=== PATIENT | male | born 1980 | race Caucasian/White ===

== ENCOUNTER 2020-05-14 15:51 | Observation (INO) | payer BC ==
[2020-05-14] MEDS ORDERED: KETOROLAC 15 MG/ML 1 ML VIAL IVP STA (16:15)
[2020-05-14 16:33] LABS: HCT 45.1 % (39.0-53.0); HGB 15.9 gm/dL (13.0-17.5); MCH 30.3 pg (25.0-35.0); MCHC 35.3 g/dL (31.0-37.0); RBC 5.24 m/uL (4.30-5.90); RDW 12.5 % (11.5-15.5); WBC 10.3 k/uL (3.8-10.6)
[2020-05-14 16:34] LABS: Basophils # (A) 0.1 k/uL (0-0.2); Basophils % (A) 1 %; Eosinophils # (A) 0.3 k/uL (0-0.7); Eosinophils % (A) 2 %; Lymphocytes # (A) 3.4 k/uL (1.0-4.8); Lymphocytes % (A) 33 %; Mean Platelet Volume 6.7; Monocytes # (A) 0.5 k/uL (0-1.0); Monocytes % (A) 5 %; Neutrophils % (A) 59 %; Platelet Count 244 k/uL (150-450)
--- NOTE | 2020-05-14 16:45 | ED ---
Chest Pain HPI - General Source: patient, family Mode of arrival: ambulatory Limitations: no limitations <Monica Nino - Last Filed: 05/14/20 17:58> <Jenny Stephenson - Last Filed: 05/18/20 16:18> - General Chief Complaint: Chest Pain Stated Complaint: Chest Pain Time Seen by Provider: 05/14/20 16:07 - History of Present Illness Initial Comments: Patient is a 39-year-old male presenting to the emergency Department with complaints of intermittent chest pain for the last week. Patient states he came back from vacation from [place] which he drove, 10 days go and he has been having left-sided chest discomfort that has been intermittent for the last 10 days. Patient states at times it can be very sharp, hurts to the touch and sometimes hurts when he takes in a deep breath. He denies any trauma or falls. He denies any cough or fever. He denies history of heart disease. He states he is an every day smoker, smokes 1 pack a day. No other drug use. He denies any sick contacts. Denies history of PEs. He states he takes no medications. Currently his chest pain is minimal at 2/10. He has not tried any medications for this. He denies any radiation at this time but states it sometimes does go into his left shoulder. Patient has no further complaints at this time. Upon arrival to the ER his vital signs are stable. (Monica Nino) - Related Data Home Medications Medication Instructions Recorded Confirmed No Known Home Medications 05/14/20 05/14/20 Allergies Allergy/AdvReac Type Severity Reaction Status Date / Time No Known Allergies Allergy Verified 05/14/20 17:26 Review of Systems ROS Other: All systems not noted in ROS Statement are negative. <Monica Nino - Last Filed: 05/14/20 17:58> ROS Other: All systems not noted in ROS Statement are negative. <Jenny Stephenson - Last Filed: 05/18/20 16:18> ROS Statement: Those systems with pertinent positive or pertinent negative responses have been documented in the HPI. EKG Findings - EKG Comments: EKG Findings:: Normal sinus rhythm, normal ECG, no signs of an acute process. Ventricular rate 95, VA interval 196, QT 344. <Monica Nino - Last Filed: 05/14/20 17:58> Past Medical History Past Medical History: No Reported History History of Any Multi-Drug Resistant Organisms: None Reported Additional Past Surgical History / Comment(s): orthopedic surgery. finger surgery. umbilical hernia. Past Psychological History: No Psychological Hx Reported Smoking Status: Current every day smoker Past Alcohol Use History: Occasional Past Drug Use History: None Reported <MicaMonica Robert - Last Filed: 05/14/20 17:58> General Exam Limitations: no limitations <Abiola Ninonifer Robert - Last Filed: 05/14/20 17:58> - General Exam Comments Initial Comments: GENERAL: Patient is well-developed and well-nourished. Patient is nontoxic and in no acute distress. HEAD: Atraumatic, normocephalic. EYES: Pupils equal round and reactive to light, extraocular movements intact, sclera anicteric, conjunctiva are normal. Eyelids were unremarkable. ENT: TMs normal, nares patent, oropharynx clear without exudates. Moist mucous membranes. NECK: Normal range of motion, supple without lymphadenopathy or JVD. LUNGS: Unlabored respirations. Breath sounds clear to auscultation bilaterally and equal. No wheezes rales or rhonchi. HEART: Regular rate and rhythm without murmurs, rubs or gallops. ABDOMEN: Soft, nontender, normoactive bowel sounds. No guarding, no rebound. No masses appreciated. : Deferred MUSCULOSKELETAL: Normal extremities with adequate strength and normal range of motion, no pitting or edema. No clubbing or cyanosis. No pain with palpation of the anterior chest, left shoulder. NEUROLOGICAL: Patient is alert and oriented x 3. Motor and sensory are also intact. Cranial nerves II through XII grossly intact. Symmetrical smile. Normal speech, normal gait. PSYCH: Normal mood, normal affect. SKIN: Warm, Dry, normal turgor, no rashes or lesions noted. (Monica Nino) Course Vital Signs 05/14/20 05/14/20 05/14/20 15:59 16:09 17:11 Temperature 98.6 F 97.6 F Pulse Rate 99 93 Pulse Rate [ 97 Food Vendor ] Pulse Rate [ Pulse Oximetery ] Respiratory 20 16 Rate Blood Pressure 124/75 132/85 Blood Pressure [Right Arm] O2 Sat by Pulse 98 96 Oximetry 05/14/20 05/14/20 18:17 18:34 Temperature 97.6 F 98.1 F Pulse Rate 92 Pulse Rate [ Food Vendor ] Pulse Rate [ 86 Pulse Oximetery ] Respiratory 16 16 Rate Blood Pressure 132/85 Blood Pressure 136/74 [Right Arm] O2 Sat by Pulse 96 94 L Oximetry Chest Pain MDM <Monica Nino - Last Filed: 05/14/20 17:58> <Jenny Stephenson - Last Filed: 05/18/20 16:18> - [facility] Patient is a 39-year-old male here for left-sided intermittent chest pain for the past week. His vital signs are stable, EKG shows no acute process. Lab work is unremarkable, d-dimer is normal, troponin is normal, chest x-ray shows no acute process. Patient does have a few risk factors including every day smoker, family history of early heart disease, I did recommend admission for serial troponins and cardiac consult. Patient is in agreement with this plan of care. Patient accepted by Dr. Cohen. Case discussed with Dr. Stephenson. (Monica Nino) I was available for consultation in the emergency department. The history and physical exam were done by the midlevel provider. I was consulted for this patients care. I reviewed the case with the midlevel provider and based on their presentation of the patient, I agree with the assessment, medical decision making and plan of care as documented. Chart was dictated using [employer] dictation software. Attempts were made to correct any dictation errors however some typographical errors may persist. Patient was seen during a national state of emergency due to the Covid-19 pandemic. (Jenny Stephenson) Disposition Is patient prescribed a controlled substance at d/c from ED?: No Decision Date: 05/14/20 Decision Time: 17:40 <Monica Nino - Last Filed: 05/14/20 17:58> <Jenny Stephenson - Last Filed: 05/18/20 16:18> Clinical Impression: Chest pain Disposition: ADMITTED IP TO THIS HOSP Condition: Stable
[2020-05-14 16:46] LABS: ALT 30 U/L (4-49); AST 20 U/L (17-59); African American GFR (CKD) >90 (>60 ml/min/1.73 sqM); Albumin 4.2 g/dL (3.5-5.0); Alkaline Phosphatase 68 U/L (38-126); Anion Gap 5 mmol/L; Blood Urea Nitrogen 17 mg/dL (9-20); Calcium 9.4 mg/dL (8.4-10.2); Carbon Dioxide 28 mmol/L (22-30); Chloride 106 mmol/L (98-107); Glucose 125 mg/dL (74-99); Magnesium 1.9 mg/dL (1.6-2.3); Non-African American GFR(CKD) >90 (>60 ml/min/1.73 sqM); Potassium 4.1 mmol/L (3.5-5.1); Sodium 139 mmol/L (137-145); Total Bilirubin 0.6 mg/dL (0.2-1.3)
[2020-05-14 16:47] LABS: D-Dimer 0.28 mg/L FEU (<0.60); INR 0.9 (<1.2); Partial Thromboplastin Time 22.9 sec (22.0-30.0); Prothrombin Time 9.7 sec (9.0-12.0)
[2020-05-14 17:13] VITALS: RESP 16
[2020-05-14] MEDS ORDERED: NITROGLYCERIN SL TABS 0.4 MG TAB SUBLINGUAL PRN (17:40)
--- NOTE | 2020-05-14 17:51 | XR ---
EXAMINATION TYPE: XR chest 2V DATE OF EXAM: 05/14/2020 COMPARISON: NONE HISTORY: Left-sided chest pain. TECHNIQUE: Frontal and lateral views of the chest are obtained. FINDINGS: There is no focal air space opacity, pleural effusion, or pneumothorax seen. The cardiac silhouette size is within normal limits. The osseous structures are intact. IMPRESSION: No acute cardiopulmonary process.
[2020-05-15 03:10] LABS: Cholesterol 179 mg/dL (<200); HDL Cholesterol 37 mg/dL (40-60); LDL Cholesterol,Calculated 86 mg/dL (0-99); Triglycerides 281 mg/dL (<150)
[2020-05-15] MEDS ORDERED: ASPIRIN 325 MG TAB PO SCH (09:00)
--- NOTE | 2020-05-15 14:00 | P.DS ---
Providers Date of admission: 05/14/20 17:43 Attending physician: Dariela Cohen Consults: 05/14/20 17:40 Consult Physician Urgent Consulting Provider: [facility] Consult Reason/Comments: chest pain, risk factors Do you want consulting provider notified?: Yes Primary care physician: Yony Kincaid [facility] Course: Please refer to my HPI for further details Patient Condition at Discharge: Stable Plan - Discharge Summary Discharge Rx Participant: No New Discharge Prescriptions: No Action No Known Home Medications Discharge Medication List No Known Home Medications 05/14/20 [History] Follow up Appointment(s)/Referral(s): Yony Kincaid MD [Primary Care Provider] - 3 Days Discharge Disposition: HOME SELF-CARE
--- NOTE | 2020-05-15 14:00 | P.HPIM ---
History of Present Illness 39-year-old male presenting to the emergency Department with complaints of intermittent chest pain for the last week. Patient states he came back from vacation from [place] which he drove, 10 days go and he has been having left-s ided chest discomfort that has been intermittent for the last 10 days. Patient states at times it can be very sharp, hurts to the touch and sometimes hurts when he takes in a deep breath. He denies any trauma or falls. He denies any cough or fever. He denies history of heart disease. He states he is an every day smoker, smokes 1 pack a day. No other drug use. He denies any sick contacts. Denies history of PEs. He states he takes no medications. Patient had chest pain of 2/10 on admission resolved now. He has not tried any medications for this. He denies any radiation at this time but states it sometimes does go into his left shoulder. Patient has no further complaints at this time. Upon arrival to the ER his vital signs are stable. Chest pain improves with massaging that area if patient the had an EKG which showed a sinus rhythm without any acute ST-T wave changes d-dimer is negative chest x-ray did not show any significant abnormality troponins were negative. Review of Systems REVIEW OF SYSTEMS: CONSTITUTIONAL: No fever, no malaise, no fatigue. HEENT: No recent visual problems or hearing problems. Denied any sore throat. CARDIOVASCULAR: No orthopnea, PND, no palpitations, no syncope. PULMONARY: No shortness of breath, no cough, no hemoptysis. GASTROINTESTINAL: No diarrhea, no nausea, no vomiting, no abdominal pain. NEUROLOGICAL: No headaches, no weakness, no numbness. HEMATOLOGICAL: Denies any bleeding or petechiae. GENITOURINARY: Denies any burning micturition, frequency, or urgency. MUSCULOSKELETAL/RHEUMATOLOGICAL: Denies any joint pain, swelling, or any muscle pain. ENDOCRINE: Denies any polyuria or polydipsia. The rest of the 14-point review of systems is negative. Past Medical History Past Medical History: No Reported History History of Any Multi-Drug Resistant Organisms: None Reported Additional Past Surgical History / Comment(s): orthopedic surgery. finger surgery. umbilical hernia. Past Anesthesia/Blood Transfusion Reactions: Postoperative Nausea & Vomiting (PONV) Past Psychological History: No Psychological Hx Reported Smoking Status: Current every day smoker Past Alcohol Use History: Occasional Past Drug Use History: None Reported Medications and Allergies Home Medications Medication Instructions Recorded Confirmed Type No Known Home Medications 05/14/20 05/14/20 History Allergies Allergy/AdvReac Type Severity Reaction Status Date / Time No Known Allergies Allergy Verified 05/14/20 17:26 Physical Exam Vitals: Vital Signs Temp Pulse Pulse Pulse Resp BP BP 05/15/20 09:00 97.7 F 62 16 121/81 05/15/20 03:00 98.3 F 75 16 121/73 05/14/20 21:00 97.6 F 73 16 116/78 05/14/20 18:34 98.1 F 86 16 136/74 05/14/20 18:17 97.6 F 92 16 132/85 05/14/20 17:11 97.6 F 93 16 132/85 05/14/20 16:09 97 05/14/20 15:59 98.6 F 99 20 124/75 Pulse Ox 05/15/20 09:00 97 05/15/20 03:00 94 L 05/14/20 21:00 94 L 05/14/20 18:34 94 L 05/14/20 18:17 96 05/14/20 17:11 96 05/14/20 16:09 05/14/20 15:59 98 Intake and Output 05/14/20 05/15/20 05/15/20 22:59 06:59 14:59 Intake Total 240 Balance 240 Intake: Oral 240 Other: Voiding Method Toilet # Voids 1 Weight 95.254 kg PHYSICAL EXAMINATION: GENERAL: The patient is alert and oriented x3, not in any acute distress. Well developed, well nourished. HEENT: Pupils are round and equally reacting to light. EOMI. No scleral icterus. No conjunctival pallor. Normocephalic, atraumatic. No pharyngeal erythema. No thyromegaly. CARDIOVASCULAR: S1 and S2 present. No murmurs, rubs, or gallops. PULMONARY: Chest is clear to auscultation, no wheezing or crackles. ABDOMEN: Soft, nontender, nondistended, normoactive bowel sounds. No palpable organomegaly. MUSCULOSKELETAL: No joint swelling or deformity. EXTREMITIES: No cyanosis, clubbing, or pedal edema. NEUROLOGICAL: Gross neurological examination did not reveal any focal deficits. SKIN: No rashes. Results CBC & Chem 7: 05/14/20 16:22 05/14/20 16:22 Labs: Abnormal Lab Results - Last 24 Hours (Table) 05/14/20 05/14/20 Range/Units 16:22 16:22 Glucose 125 H (74-99) mg/dL Triglycerides 281 H (<150) mg/dL HDL Cholesterol 37 L (40-60) mg/dL Thrombosis Risk Factor Assmnt - Choose All That Apply Any of the Below Risk Factors Present?: Yes Each Factor Represents 1 point: Obesity (BMI >25) Other Risk Factors: No Other congenital or acquired thrombophilia - If yes, enter type in comment: No Thrombosis Risk Factor Assessment Total Risk Factor Score: 1 Thrombosis Risk Factor Assessment Level: Low Risk Assessment and Plan Plan: -Chest pain: Rule out acute coronary syndromes atypical chest pain appears to be musculoskeletal will be evaluated by cardiology. Cardiology patient will be discharged. Patient may need an outpatient stress test patient had family history of coronary artery disease in his mother and her 40s. -Nicotine use: Counseling was provided
[2020-05-15 15:58] VITALS: BP 122/79; PULSE 68; TEMP 97.9
--- NOTE | 2020-05-15 16:40 | P.CRDCN ---
History of Present Illness History of present illness: HISTORY OF PRESENTING ILLNESS This is a pleasant 39-year-old male past medical history significant for tobacco abuse, family history of mother with stent. Patient has been having chest pain off and on over the last 10 days. He admits that overall he is normally fairly healthy and active. He notes substernal sharp pain which is worse with deep inspiration over the last 10 days. Initially over the first few days he just ignored it however it was somewhat persistent. He states that maybe he had some feeling warm however no obvious diaphoresis. No associated shortness breath, nausea. It persisted and therefore his recommended he came in. He did have one episode overnight that lasted approximately 5 minutes. There is no significant arrhythmias noted during that time. He does have a mother with a history of stent. Smokes approximately 1 pack per day. DIAGNOSTICS EKG reveals normal sinus rhythm, normal EKG. Chest xray no acute cardiopulmonary process. Laboratory reviewed, triglycerides 281, total cholesterol 179, LDL 86, troponin negative 3, creatinine 0.87, d-dimer 0.28, white blood cell count 10.3, hemoglobin 15.9. Current cardiac medications include aspirin 325 mg daily. REVIEW OF SYSTEMS At the time of my exam: CONSTITUTIONAL: Denies fever or chills. CARDIOVASCULAR: + chest pain, no shortness of breath, orthopnea, PND or palpitations. RESPIRATORY: Denies cough. GASTROINTESTINAL: Denies abdominal pain, diarrhea, constipation, nausea or vomiting. MUSCULOSKELETAL: Denies myalgias. NEUROLOGIC: Denies numbness, tingling or weakness. ENDOCRINE: Denies fatigue, weight change, polydipsia or polyurina. GENITOURINARY: Denies burning, hematuria or urgency with micturation. HEMATOLOGIC: Denies history of anemia or bleeding. PHYSICAL EXAMINATION Blood pressure 122/79 heart rate 68 afebrile and maintaining oxygen saturation on room air. CONSTITUTIONAL: No apparent distress. HEENT: Head is normocephalic. Pupils are equal, round. Sclerae anicteric. Mucous membranes of the mouth are moist. No JVD. No carotid bruit. CHEST EXAMINATION: Lungs are clear to auscultation. No chest wall tenderness is noted on palpation or with deep breathing. HEART EXAMINATION: Regular rate and rhythm. S1, S2 heard. No murmurs, gallops or rub. ABDOMEN: Soft, nontender. Positive bowel sounds. EXTREMITIES: 2+ peripheral pulses, no lower extremity edema and no calf te nderness. NEUROLOGIC EXAMINATION: Patient is awake, alert and oriented x3. ASSESSMENT 1. Atypical chest pain somewhat worse with deep inspiration with normal troponins. 2. Tobacco abuse 3. Family history of coronary artery disease PLAN Troponins are normal with normal EKG. Patient did have episode overnight and there was a consideration of possible arrhythmia however no significant arrhythm ias on telemetry. Patient cleared from a cardiology standpoint for discharge with outpatient follow-up, outpatient echo and stress test. Past Medical History Past Medical History: No Reported History History of Any Multi-Drug Resistant Organisms: None Reported Additional Past Surgical History / Comment(s): orthopedic surgery. finger surgery. umbilical hernia. Past Anesthesia/Blood Transfusion Reactions: Postoperative Nausea & Vomiting (PONV) Past Psychological History: No Psychological Hx Reported Smoking Status: Current every day smoker Past Alcohol Use History: Occasional Past Drug Use History: None Reported Medications and Allergies Home Medications Medication Instructions Recorded Confirmed Type No Known Home Medications 05/14/20 05/14/20 History Allergies Allergy/AdvReac Type Severity Reaction Status Date / Time No Known Allergies Allergy Verified 05/14/20 17:26 Physical Exam Vitals: Vital Signs Temp Pulse Pulse Resp BP BP Pulse Ox 05/15/20 15:00 97.9 F 68 16 122/79 96 05/15/20 09:00 97.7 F 62 16 121/81 97 05/15/20 03:00 98.3 F 75 16 121/73 94 L 05/14/20 21:00 97.6 F 73 16 116/78 94 L 05/14/20 18:34 98.1 F 86 16 136/74 94 L 05/14/20 18:17 97.6 F 92 16 132/85 96 05/14/20 17:11 97.6 F 93 16 132/85 96 Intake and Output 05/15/20 05/15/20 05/15/20 06:59 14:59 22:59 Intake Total 240 Balance 240 Intake: Oral 240 Other: Voiding Method Toilet Toilet # Voids 1 Results 05/14/20 16:22 05/14/20 16:22 Cardiac Enzymes 05/14/20 05/14/20 05/14/20 Range/Units 16:22 16:22 19:02 AST 20 (17-59) U/L Troponin I <0.012 <0.012 (0.000-0.034) ng/mL 05/14/20 Range/Units 22:16 AST (17-59) U/L Troponin I <0.012 (0.000-0.034) ng/mL Coagulation 05/14/20 Range/Units 16:22 PT 9.7 (9.0-12.0) sec APTT 22.9 (22.0-30.0) sec Lipids 05/14/20 Range/Units 16:22 Triglycerides 281 H (<150) mg/dL Cholesterol 179 (<200) mg/dL HDL Cholesterol 37 L (40-60) mg/dL Comprehensive Metabolic Panel 05/14/20 Range/Units 16:22 Sodium 139 (137-145) mmol/L Potassium 4.1 (3.5-5.1) mmol/L Chloride 106 (98-107) mmol/L Carbon Dioxide 28 (22-30) mmol/L BUN 17 (9-20) mg/dL Creatinine 0.87 (0.66-1.25) mg/dL Glucose 125 H (74-99) mg/dL Calcium 9.4 (8.4-10.2) mg/dL AST 20 (17-59) U/L ALT 30 (4-49) U/L Alkaline Phosphatase 68 (38-126) U/L Total Protein 7.0 (6.3-8.2) g/dL Albumin 4.2 (3.5-5.0) g/dL Current Medications Generic Name Dose Route Start Last Admin Trade Name Freq PRN Reason Stop Dose Admin Aspirin 325 mg 05/15/20 09:00 05/15/20 08:30 Aspirin 325 Mg Tab PO 325 mg DAILY PARISH Administration Nitroglycerin 0.4 mg 05/14/20 17:40 Nitroglycerin Sl Tabs 0.4 Mg Tab SUBLINGUAL Q5M PRN Chest Pain Intake and Output 05/15/20 05/15/20 05/15/20 06:59 14:59 22:59 Intake Total 240 Balance 240 Intake: Oral 240 Other: Voiding Method Toilet Toilet # Voids 1 05/14/20 16:22 05/14/20 16:22
== END 2020-05-15 16:40 | disposition home or self-care (01) ==
LOC: EC 15:51 → 1SOBS 17:43
PROVIDERS: ADMIT Internal Medicine; ATTEND Internal Medicine
DX: R07.89 Other chest pain (principal); F17.210 Nicotine dependence, cigarettes, uncomplicated; E66.9 Obesity, unspecified; Z71.6 Tobacco abuse counseling; Z98.890 Other specified postprocedural states; Z91.89 Other specified personal risk factors, not elsewhere classified; Z68.30 Body mass index [BMI] 30.0-30.9, adult; Z82.49 Family history of ischemic heart disease and other diseases of the circulatory system
CPT/HCPCS: 93005 ×2; 96374; 99285; 36415; 85379; 80061; 80053; 83735; 84484; 85025; 85610; 85730; 71046; G0378 ×2; J1885

== ENCOUNTER 2021-03-01 10:58 | Emergency (ER) | payer BC, OTHER ==
[2021-03-01 11:22] VITALS: BP 129/83; PULSE 104; RESP 18; TEMP 97.6
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
== END 2021-03-01 12:15 | disposition home or self-care (01) ==
LOC: EC 10:58
DX: M79.10 Myalgia, unspecified site (principal); F17.200 Nicotine dependence, unspecified, uncomplicated; V53.5XXA Driver of pick-up truck or van injured in collision with car, pick-up truck or van in traffic accident, initial encounter; Y92.410 Unspecified street and highway as the place of occurrence of the external cause
CPT/HCPCS: 99283